=== PATIENT | male | born 1965 | race Hispanic/Latino ===

== ENCOUNTER 2020-09-30 09:23 | Outpatient (CLI) | payer MEDICARE, MEDICAID | END 2020-09-30 09:24 | disposition home or self-care (01) | LOC: CSHWCC 09:23 | PROVIDERS: ATTEND Nurse Practitioner Family | DX: T81.89XD Other complications of procedures, not elsewhere classified, subsequent encounter (principal); E11.40 Type 2 diabetes mellitus with diabetic neuropathy, unspecified; I21.3 ST elevation (STEMI) myocardial infarction of unspecified site; I10 Essential (primary) hypertension | CPT/HCPCS: 97139; G0463; 99203 ==

== ENCOUNTER 2020-10-14 09:53 | Outpatient (CLI) | payer MEDICARE, MEDICAID | END 2020-10-14 09:54 | disposition home or self-care (01) | LOC: CSHWCC 09:53 | PROVIDERS: ATTEND Nurse Practitioner Family | DX: T81.89XD Other complications of procedures, not elsewhere classified, subsequent encounter (principal); E11.40 Type 2 diabetes mellitus with diabetic neuropathy, unspecified; I10 Essential (primary) hypertension; I21.3 ST elevation (STEMI) myocardial infarction of unspecified site | CPT/HCPCS: 97139; G0463; 99212 ==

== ENCOUNTER 2022-07-13 12:12 | Inpatient (IN) | payer OTHER, MEDICAID ==
[2022-07-13 12:59] LABS: Hemoglobin 9.2 g/dL (13.5-17.5); Mean Corpuscular HGB CONC 32.1 g/dL (32.0-36.0); Mean Corpuscular Hemoglobin 24.8 pg (27.0-33.0); Mean Corpuscular Volume 77.4 fl (81.2-95.1); Mean Platelet Volume 9.6 fl (7.4-10.4); Platelet Count 392 10x3/uL (150-450); RBC Distribution Width 16.2 % (11.5-14.5); Red Blood Cell (RBC) Count 3.71 10x6/uL (4.32-5.72); White Blood Cell (WBC) Count 22.2 10x3/uL (3.5-10.5)
[2022-07-13 13:00] LABS: MDiff Complete? YES
[2022-07-13 13:11] LABS: INR-International Normal Ratio 1.1; PTT 30.3 sec (22.0-33.0); Prothrombin Time 11.8 sec (9.5-12.1)
[2022-07-13 13:14] LABS: ALT (SGPT) 6 U/L (8-55); AST (SGOT) 14 U/L (5-34); Albumin 2.7 g/dL (3.5-5.0); Alkaline Phosphatase 67 U/L (40-110); Anion Gap 20 mmol/L (10-20); BUN (Urea Nitrogen) 65 mg/dL (8.4-25.7); Bilirubin, Total 0.6 mg/dL (0.2-1.2); Calc. Creatinine Clearance 0 mL/min (70-130); Calcium 8.4 mg/dL (7.8-10.44); Carbon Dioxide 18 mmol/L (22-29); Chloride 104 mmol/L (98-107); Estimated GFR 17; Globulin 4.2 g/dL (2.4-3.5); Glucose 117 mg/dL (70-105); Lipase 9 U/L (8-78); Potassium 5.2 mmol/L (3.5-5.1); Protein, Total 6.9 g/dL (6.0-8.3); Sodium 137 mmol/L (136-145)
[2022-07-13 13:33] LABS: Band 7 % (5-11); Neutrophil 71 % (42-75)
[2022-07-13 13:34] LABS: Eosinophils 1 % (0-10); Reactive Lymphocytes 4 % (0-10)
[2022-07-13 13:35] LABS: Lymphocytes 9 % (21-51); Monocytes 5 % (0-10)
[2022-07-13 13:37] LABS: Anisocytosis SLIGHT = 6-15 cells (100X) (0-5/hpf); Microcytosis SLIGHT = 6-15 cells (100X) (0-5/hpf)
[2022-07-13 13:38] LABS: Platelet Clumps MODERATE; Platelet Morphology Comment Appears Adequate
[2022-07-13 13:45] LABS: SARS-CoV-2 NAA Rapid Test Not Detected (NotDetected)
[2022-07-13 14:42] LABS: Bilirubin Neg (Negative); Blood, Urine 25 (Negative); Clarity Clear (Clear); Glucose, Urine (Dipstick) 100 mg/dL (Negative); Ketone, Urine Negative (Negative); Leukocyte Negative (Negative); Nitrite Negative (Negative); Protein, Urine (Dipstick) 500 mg/dl (Neg-Trace); Urobilinogen Normal mg/dL (Less than 2)
[2022-07-13 14:51] LABS: Mucous/LPF 2+ LPF (<2+); Squamous Epithelial 0-3 HPF (0-3)
[2022-07-13 14:52] LABS: Bacteria/HPF 2+ HPF (None Seen)
[2022-07-13] MEDS ORDERED: metroNIDAZOLE 500 MG/100 ML BAG ONE (16:29)
[2022-07-13] MEDS ORDERED: HumaLOG 300 UNITS/3 ML VIAL SC PRN ×2 (19:50)
[2022-07-13] MEDS ORDERED: Dextrose 5% in Water 1,000 ML IV PRN (19:50)
[2022-07-13] MEDS ORDERED: hydrOXYzine 10 MG TAB PO PRN (19:50)
[2022-07-13] MEDS ORDERED: Dextrose 50% Abboject 50 ML SYRINGE SLOW IVP PRN (19:50)
[2022-07-13] MEDS ORDERED: Acetaminophen 650 MG Suppository PR PRN (19:50)
[2022-07-13] MEDS ORDERED: Senokot S 8.6-50 MG TAB PO PRN (19:50)
[2022-07-13] MEDS ORDERED: Guaifenesin DM 100-10/5 ML UDCUP PO PRN (19:50)
[2022-07-13] MEDS: Sodium Chloride 0.45% 1,000 ML IV SCH (20:57)
[2022-07-13] MEDS: Midodrine HCl 5 MG TAB PO SCH (21:09)
[2022-07-13] MEDS: Gabapentin 300 MG CAP PO SCH (21:09)
[2022-07-13] MEDS: Senokot S 8.6-50 MG TAB PO SCH (21:09)
[2022-07-13] MEDS: Doxycycline 100 MG CAP PO SCH (21:09)
[2022-07-13] MEDS: Heparin 5,000 UNITS/ML VIAL SC SCH (21:10)
[2022-07-13] MEDS: Lantus 1000 UNITS/10 ML VIAL SC SCH (21:10)
[2022-07-14 06:07] LABS: #Basophils 0.1 10x3/uL (0.0-0.2); #Monocytes 0.9 10x3/uL (0.0-1.1); #Neutrophils 13.5 10x3/uL (1.5-8.4); %Basophils 0.4 % (0.0-2.0); %Eosinophils 0.1 % (0.0-6.0); %Lymphocytes 10.6 % (18.0-47.0); %Monocytes 5.5 % (0.0-10.0); Hemoglobin 8.3 g/dL (13.5-17.5); Mean Corpuscular HGB CONC 31.7 g/dL (32.0-36.0); Mean Corpuscular Hemoglobin 24.3 pg (27.0-33.0); Mean Corpuscular Volume 76.8 fl (81.2-95.1); Mean Platelet Volume 9.5 fl (7.4-10.4); Platelet Count 298 10x3/uL (150-450); RBC Distribution Width 15.9 % (11.5-14.5); Red Blood Cell (RBC) Count 3.41 10x6/uL (4.32-5.72); White Blood Cell (WBC) Count 16.3 10x3/uL (3.5-10.5)
[2022-07-14 06:18] LABS: Anion Gap 15 mmol/L (10-20); BUN (Urea Nitrogen) 49 mg/dL (8.4-25.7); Calc. Creatinine Clearance 27 mL/min (70-130); Calcium 8.6 mg/dL (7.8-10.44); Carbon Dioxide 17 mmol/L (22-29); Chloride 109 mmol/L (98-107); Estimated GFR 25; Glucose 120 mg/dL (70-105); Potassium 4.8 mmol/L (3.5-5.1); Sodium 136 mmol/L (136-145)
[2022-07-14] MEDS: Gabapentin 300 MG CAP PO SCH ×3 (09:03→21:54)
[2022-07-14] MEDS: Doxycycline 100 MG CAP PO SCH ×2 (09:04→21:54)
[2022-07-14] MEDS: Aspirin Chewable 81 MG TAB PO SCH (09:04)
[2022-07-14] MEDS: Icosapent Ethyl 1 GM CAPSULE PO SCH ×2 (09:04→16:11)
[2022-07-14] MEDS: Atorvastatin Calcium 40 MG TAB PO SCH (09:04)
[2022-07-14] MEDS: Carvedilol 6.25 MG TAB PO SCH ×2 (09:05→16:12)
[2022-07-14] MEDS: Heparin 5,000 UNITS/ML VIAL SC SCH ×3 (09:05→21:54)
[2022-07-14] MEDS: Polyethylene Glycol 3350 17 GM Packet PO SCH (09:06)
[2022-07-14] MEDS: Midodrine HCl 5 MG TAB PO SCH ×4 (09:06→21:59)
[2022-07-14] MEDS: Senokot S 8.6-50 MG TAB PO SCH ×2 (09:06→21:55)
[2022-07-14] MEDS: Ondansetron ODT 4 MG TAB PO PRN (09:12)
[2022-07-14] MEDS ORDERED: metroNIDAZOLE 500 MG/100 ML BAG ONE (11:52)
[2022-07-14] MEDS: Sodium Chloride 0.45% 1,000 ML IV SCH (12:09)
[2022-07-14] MEDS: metroNIDAZOLE 500 MG in Premix Bag 1 BAG IVPB SCH ×3 (12:09→21:53)
[2022-07-14] MEDS: traMADol HCl 50 MG TAB PO PRN (16:20)
[2022-07-14] MEDS: Lantus 1000 UNITS/10 ML VIAL SC SCH (21:54)
[2022-07-15 04:47] LABS: Anion Gap 13 mmol/L (10-20); BUN (Urea Nitrogen) 46 mg/dL (8.4-25.7); Calc. Creatinine Clearance 31 mL/min (70-130); Calcium 7.9 mg/dL (7.8-10.44); Carbon Dioxide 16 mmol/L (22-29); Chloride 104 mmol/L (98-107); Estimated GFR 29; Glucose 173 mg/dL (70-105); Potassium 4.4 mmol/L (3.5-5.1); Sodium 129 mmol/L (136-145)
[2022-07-15 05:17] LABS: #Eosinphils 0.1 10x3/uL (0.0-0.5); #Monocytes 0.6 10x3/uL (0.0-1.1); #Neutrophils 9.3 10x3/uL (1.5-8.4); %Basophils 0.3 % (0.0-2.0); %Eosinophils 0.6 % (0.0-6.0); %Lymphocytes 14.5 % (18.0-47.0); %Monocytes 5.4 % (0.0-10.0); %Neutrophils 78.9 % (40.0-75.0); Hemoglobin 7.1 g/dL (13.5-17.5); Mean Corpuscular HGB CONC 31.6 g/dL (32.0-36.0); Mean Corpuscular Hemoglobin 24.7 pg (27.0-33.0); Mean Corpuscular Volume 78.1 fl (81.2-95.1); Mean Platelet Volume 9.9 fl (7.4-10.4); Platelet Count 268 10x3/uL (150-450); RBC Distribution Width 15.6 % (11.5-14.5); Red Blood Cell (RBC) Count 2.88 10x6/uL (4.32-5.72); White Blood Cell (WBC) Count 11.8 10x3/uL (3.5-10.5)
[2022-07-15] MEDS ORDERED: metroNIDAZOLE 500 MG/100 ML BAG ONE (07:00)
[2022-07-15] MEDS: metroNIDAZOLE 500 MG in Premix Bag 1 BAG IVPB SCH ×3 (07:02→19:47)
[2022-07-15] MEDS: Sodium Chloride 0.45% 1,000 ML IV SCH ×2 (07:11→18:14)
[2022-07-15] MEDS: Gabapentin 300 MG CAP PO SCH ×3 (07:54→21:48)
[2022-07-15] MEDS: Carvedilol 6.25 MG TAB PO SCH ×3 (07:55→19:56)
[2022-07-15] MEDS: Aspirin Chewable 81 MG TAB PO SCH (07:56)
[2022-07-15] MEDS: Doxycycline 100 MG CAP PO SCH ×2 (07:59→21:48)
[2022-07-15] MEDS: Midodrine HCl 5 MG TAB PO SCH ×3 (08:00→21:50)
[2022-07-15] MEDS: Senokot S 8.6-50 MG TAB PO SCH ×2 (08:01→22:06)
[2022-07-15] MEDS: Polyethylene Glycol 3350 17 GM Packet PO SCH (08:01)
[2022-07-15] MEDS: Icosapent Ethyl 1 GM CAPSULE PO SCH ×2 (08:01→19:49)
[2022-07-15] MEDS: Heparin 5,000 UNITS/ML VIAL SC SCH ×3 (08:01→21:50)
[2022-07-15] MEDS: Atorvastatin Calcium 40 MG TAB PO SCH (08:02)
[2022-07-15] MEDS ORDERED: Lidocaine 1% PF 5 ML VIAL ONE (09:05)
[2022-07-15] MEDS ORDERED: Fentanyl 100 MCG/2 ML VIAL ONE (09:05)
[2022-07-15] MEDS ORDERED: PROPOFOL 20 ML ONE (09:05)
[2022-07-15] MEDS ORDERED: Succinylcholine 200 MG/10 ml SYRINGE FS ONE (09:17)
[2022-07-15] MEDS ORDERED: Rocuronium Bromide 10 MG/ML (10ML VIAL) ONE (09:17)
[2022-07-15] MEDS ORDERED: Ondansetron PF 4 MG/2 ML Vial ONE (10:33)
[2022-07-15] MEDS: traMADol HCl 50 MG TAB PO PRN (14:41)
[2022-07-15] MEDS: Morphine 4 MG/ML VIAL SLOW IVP PRN ×2 (15:51→21:58)
[2022-07-15] MEDS: Lantus 1000 UNITS/10 ML VIAL SC SCH (21:49)
[2022-07-16] MEDS: metroNIDAZOLE 500 MG in Premix Bag 1 BAG IVPB SCH ×4 (00:23→18:00)
[2022-07-16 03:46] LABS: Anion Gap 11 mmol/L (10-20); BUN (Urea Nitrogen) 36 mg/dL (8.4-25.7); Calc. Creatinine Clearance 36 mL/min (70-130); Calcium 7.7 mg/dL (7.8-10.44); Carbon Dioxide 15 mmol/L (22-29); Chloride 108 mmol/L (98-107); Estimated GFR 35; Glucose 100 mg/dL (70-105); Potassium 4.4 mmol/L (3.5-5.1); Sodium 130 mmol/L (136-145)
[2022-07-16 03:47] LABS: #Basophils 0.1 10x3/uL (0.0-0.2); #Eosinphils 0.1 10x3/uL (0.0-0.5); #Monocytes 0.6 10x3/uL (0.0-1.1); #Neutrophils 8.3 10x3/uL (1.5-8.4); %Basophils 0.7 % (0.0-2.0); %Eosinophils 0.7 % (0.0-6.0); %Lymphocytes 17.8 % (18.0-47.0); %Monocytes 5.8 % (0.0-10.0); %Neutrophils 74.7 % (40.0-75.0); Mean Corpuscular HGB CONC 32.4 g/dL (32.0-36.0); Mean Corpuscular Hemoglobin 25.4 pg (27.0-33.0); Mean Corpuscular Volume 78.4 fl (81.2-95.1); Mean Platelet Volume 10.1 fl (7.4-10.4); Platelet Count 249 10x3/uL (150-450); RBC Distribution Width 15.4 % (11.5-14.5); Red Blood Cell (RBC) Count 3.15 10x6/uL (4.32-5.72); White Blood Cell (WBC) Count 11.1 10x3/uL (3.5-10.5)
[2022-07-16] MEDS: Sodium Chloride 0.45% 1,000 ML IV SCH ×2 (04:56→18:39)
[2022-07-16] MEDS: traMADol HCl 50 MG TAB PO PRN ×3 (06:46→20:05)
[2022-07-16] MEDS: Gabapentin 300 MG CAP PO SCH ×3 (08:48→20:58)
[2022-07-16] MEDS: Doxycycline 100 MG CAP PO SCH ×2 (08:49→20:58)
[2022-07-16] MEDS: Aspirin Chewable 81 MG TAB PO SCH (08:49)
[2022-07-16] MEDS: Carvedilol 6.25 MG TAB PO SCH ×2 (08:49→18:00)
[2022-07-16] MEDS: Midodrine HCl 5 MG TAB PO SCH ×3 (08:49→20:59)
[2022-07-16] MEDS: Icosapent Ethyl 1 GM CAPSULE PO SCH ×2 (08:49→18:00)
[2022-07-16] MEDS: Atorvastatin Calcium 40 MG TAB PO SCH (08:49)
[2022-07-16] MEDS: Morphine 4 MG/ML VIAL SLOW IVP PRN (08:50)
[2022-07-16] MEDS: Polyethylene Glycol 3350 17 GM Packet PO SCH (08:51)
[2022-07-16] MEDS: Senokot S 8.6-50 MG TAB PO SCH ×2 (08:51→20:59)
[2022-07-16] MEDS: Heparin 5,000 UNITS/ML VIAL SC SCH ×3 (09:01→21:06)
[2022-07-16] MEDS: Lantus 1000 UNITS/10 ML VIAL SC SCH (21:05)
[2022-07-16] MEDS: Acetaminophen 500 MG TAB PO PRN (21:09)
[2022-07-17] MEDS: traMADol HCl 50 MG TAB PO PRN ×2 (01:05→13:14)
[2022-07-17] MEDS: metroNIDAZOLE 500 MG in Premix Bag 1 BAG IVPB SCH ×4 (01:07→17:23)
[2022-07-17] MEDS: Ondansetron PF 4 MG/2 ML Vial IVP PRN ×2 (01:11→21:19)
[2022-07-17] MEDS ORDERED: Morphine 2 MG/ML VIAL SLOW IVP PRN (03:33)
[2022-07-17 04:28] LABS: Anion Gap 11 mmol/L (10-20); BUN (Urea Nitrogen) 33 mg/dL (8.4-25.7); Calc. Creatinine Clearance 38 mL/min (70-130); Calcium 7.8 mg/dL (7.8-10.44); Carbon Dioxide 16 mmol/L (22-29); Chloride 107 mmol/L (98-107); Estimated GFR 39; Glucose 90 mg/dL (70-105); Potassium 4.4 mmol/L (3.5-5.1); Sodium 130 mmol/L (136-145)
[2022-07-17 04:39] LABS: #Basophils 0.1 10x3/uL (0.0-0.2); #Eosinphils 0.1 10x3/uL (0.0-0.5); #Monocytes 0.8 10x3/uL (0.0-1.1); #Neutrophils 7.3 10x3/uL (1.5-8.4); %Basophils 0.6 % (0.0-2.0); %Lymphocytes 17.6 % (18.0-47.0); %Monocytes 7.5 % (0.0-10.0); %Neutrophils 72.9 % (40.0-75.0); Hemoglobin 7.9 g/dL (13.5-17.5); Mean Corpuscular HGB CONC 32.6 g/dL (32.0-36.0); Mean Corpuscular Hemoglobin 25.4 pg (27.0-33.0); Mean Corpuscular Volume 77.8 fl (81.2-95.1); Mean Platelet Volume 9.7 fl (7.4-10.4); Platelet Count 261 10x3/uL (150-450); RBC Distribution Width 15.4 % (11.5-14.5); Red Blood Cell (RBC) Count 3.11 10x6/uL (4.32-5.72)
[2022-07-17] MEDS: Polyethylene Glycol 3350 17 GM Packet PO SCH (08:11)
[2022-07-17] MEDS: Doxycycline 100 MG CAP PO SCH ×2 (08:55→21:34)
[2022-07-17] MEDS: Senokot S 8.6-50 MG TAB PO SCH ×2 (08:55→21:36)
[2022-07-17] MEDS: Icosapent Ethyl 1 GM CAPSULE PO SCH ×2 (08:55→17:22)
[2022-07-17] MEDS: Atorvastatin Calcium 40 MG TAB PO SCH (08:56)
[2022-07-17] MEDS: Carvedilol 6.25 MG TAB PO SCH ×2 (08:56→17:23)
[2022-07-17] MEDS: Acetaminophen 500 MG TAB PO PRN (08:57)
[2022-07-17] MEDS: Ondansetron ODT 4 MG TAB PO PRN ×2 (08:59→15:06)
[2022-07-17] MEDS: Aspirin Chewable 81 MG TAB PO SCH (09:00)
[2022-07-17] MEDS: Gabapentin 300 MG CAP PO SCH ×3 (09:00→21:34)
[2022-07-17] MEDS: Heparin 5,000 UNITS/ML VIAL SC SCH ×3 (09:01→21:33)
[2022-07-17] MEDS: Midodrine HCl 5 MG TAB PO SCH ×3 (09:03→21:35)
[2022-07-17] MEDS ORDERED: Scopolamine 1.5 mg/72 hour Patch TOP SCH (16:00)
[2022-07-17] MEDS: Lantus 1000 UNITS/10 ML VIAL SC SCH (21:31)
[2022-07-17] MEDS: HYDROcodone/Acetaminophen 5/325 mg Tablet PO PRN (21:40)
[2022-07-18] MEDS: metroNIDAZOLE 500 MG in Premix Bag 1 BAG IVPB SCH ×2 (01:05→05:46)
[2022-07-18 03:50] LABS: Anion Gap 12 mmol/L (10-20); BUN (Urea Nitrogen) 29 mg/dL (8.4-25.7); Calc. Creatinine Clearance 41 mL/min (70-130); Calcium 8.3 mg/dL (7.8-10.44); Carbon Dioxide 17 mmol/L (22-29); Chloride 107 mmol/L (98-107); Estimated GFR 41; Glucose 115 mg/dL (70-105); Potassium 4.3 mmol/L (3.5-5.1); Sodium 132 mmol/L (136-145)
[2022-07-18 03:56] LABS: #Basophils 0.1 10x3/uL (0.0-0.2); #Eosinphils 0.2 10x3/uL (0.0-0.5); #Monocytes 0.9 10x3/uL (0.0-1.1); #Neutrophils 9.1 10x3/uL (1.5-8.4); %Basophils 0.7 % (0.0-2.0); %Eosinophils 1.5 % (0.0-6.0); %Lymphocytes 14.3 % (18.0-47.0); %Monocytes 7.1 % (0.0-10.0); %Neutrophils 75.8 % (40.0-75.0); Hemoglobin 8.6 g/dL (13.5-17.5); Mean Corpuscular HGB CONC 32.6 g/dL (32.0-36.0); Mean Corpuscular Volume 76.7 fl (81.2-95.1); Mean Platelet Volume 9.3 fl (7.4-10.4); Platelet Count 310 10x3/uL (150-450); RBC Distribution Width 15.3 % (11.5-14.5); Red Blood Cell (RBC) Count 3.44 10x6/uL (4.32-5.72); White Blood Cell (WBC) Count 12.1 10x3/uL (3.5-10.5)
[2022-07-18] MEDS: Ondansetron PF 4 MG/2 ML Vial IVP PRN (05:50)
[2022-07-18] MEDS: Aspirin Chewable 81 MG TAB PO SCH ×2 (10:19→11:02)
[2022-07-18] MEDS: Atorvastatin Calcium 40 MG TAB PO SCH ×2 (10:19→11:04)
[2022-07-18] MEDS: Doxycycline 100 MG CAP PO SCH (10:19)
[2022-07-18] MEDS: Gabapentin 300 MG CAP PO SCH ×3 (10:20→21:53)
[2022-07-18] MEDS: Heparin 5,000 UNITS/ML VIAL SC SCH ×3 (10:21→21:53)
[2022-07-18] MEDS: Polyethylene Glycol 3350 17 GM Packet PO SCH (10:22)
[2022-07-18] MEDS: Morphine 4 MG/ML VIAL SLOW IVP PRN ×2 (10:34→21:52)
[2022-07-18] MEDS: Senokot S 8.6-50 MG TAB PO SCH ×2 (10:53→22:45)
[2022-07-18] MEDS: Icosapent Ethyl 1 GM CAPSULE PO SCH ×2 (10:55→18:31)
[2022-07-18] MEDS: Midodrine HCl 5 MG TAB PO SCH ×3 (10:55→22:44)
[2022-07-18] MEDS: Carvedilol 6.25 MG TAB PO SCH ×2 (11:03→18:23)
[2022-07-18] MEDS ORDERED: Promethazine HCl 12.5 MG in Sodium Chloride 0.9% 50 ML IVPB PRN (11:40)
[2022-07-18] MEDS: HYDROcodone/Acetaminophen 5/325 mg Tablet PO PRN (16:11)
[2022-07-18] MEDS: Ondansetron ODT 4 MG TAB PO PRN (16:11)
[2022-07-18] MEDS: Lantus 1000 UNITS/10 ML VIAL SC SCH (21:54)
[2022-07-19 04:03] LABS: #Basophils 0.1 10x3/uL (0.0-0.2); #Eosinphils 0.2 10x3/uL (0.0-0.5); #Monocytes 0.7 10x3/uL (0.0-1.1); #Neutrophils 8.9 10x3/uL (1.5-8.4); %Basophils 0.7 % (0.0-2.0); %Eosinophils 1.7 % (0.0-6.0); %Lymphocytes 18.1 % (18.0-47.0); %Neutrophils 72.8 % (40.0-75.0); Hemoglobin 8.8 g/dL (13.5-17.5); Mean Corpuscular HGB CONC 32.5 g/dL (32.0-36.0); Mean Platelet Volume 9.2 fl (7.4-10.4); Platelet Count 323 10x3/uL (150-450); RBC Distribution Width 15.5 % (11.5-14.5); Red Blood Cell (RBC) Count 3.52 10x6/uL (4.32-5.72); White Blood Cell (WBC) Count 12.2 10x3/uL (3.5-10.5)
[2022-07-19 04:10] LABS: Anion Gap 12 mmol/L (10-20); BUN (Urea Nitrogen) 31 mg/dL (8.4-25.7); Calc. Creatinine Clearance 37 mL/min (70-130); Calcium 8.4 mg/dL (7.8-10.44); Carbon Dioxide 18 mmol/L (22-29); Chloride 108 mmol/L (98-107); Estimated GFR 38; Glucose 91 mg/dL (70-105); Potassium 4.5 mmol/L (3.5-5.1); Sodium 133 mmol/L (136-145)
[2022-07-19] MEDS: Aspirin Chewable 81 MG TAB PO SCH (09:05)
[2022-07-19] MEDS: Gabapentin 300 MG CAP PO SCH ×3 (09:05→21:52)
[2022-07-19] MEDS: Carvedilol 6.25 MG TAB PO SCH ×2 (09:05→16:11)
[2022-07-19] MEDS: Senokot S 8.6-50 MG TAB PO SCH ×2 (09:06→22:01)
[2022-07-19] MEDS: Atorvastatin Calcium 40 MG TAB PO SCH (09:06)
[2022-07-19] MEDS: Heparin 5,000 UNITS/ML VIAL SC SCH ×3 (09:06→21:49)
[2022-07-19] MEDS: Midodrine HCl 5 MG TAB PO SCH ×3 (09:06→21:48)
[2022-07-19] MEDS: Icosapent Ethyl 1 GM CAPSULE PO SCH ×2 (09:06→16:11)
[2022-07-19] MEDS: Polyethylene Glycol 3350 17 GM Packet PO SCH (09:06)
[2022-07-19] MEDS: Morphine 4 MG/ML VIAL SLOW IVP PRN ×2 (09:25→21:48)
[2022-07-19 10:30] VITALS: BMI 22.5
[2022-07-19] MEDS ORDERED: Sodium Chloride 0.9% 1,000 ML IV SCH (10:30)
[2022-07-19] MEDS: Sodium Chloride 0.9% 1,000 ML IV SCH (12:42)
[2022-07-19] MEDS: Lantus 1000 UNITS/10 ML VIAL SC SCH (22:01)
[2022-07-20] MEDS: Sodium Chloride 0.9% 1,000 ML IV SCH (02:49)
[2022-07-20 04:35] LABS: #Basophils 0.1 10x3/uL (0.0-0.2); #Eosinphils 0.3 10x3/uL (0.0-0.5); #Monocytes 0.8 10x3/uL (0.0-1.1); #Neutrophils 8.5 10x3/uL (1.5-8.4); %Basophils 0.7 % (0.0-2.0); %Eosinophils 2.4 % (0.0-6.0); %Lymphocytes 20.2 % (18.0-47.0); %Monocytes 6.4 % (0.0-10.0); %Neutrophils 69.5 % (40.0-75.0); Hemoglobin 7.6 g/dL (13.5-17.5); Mean Corpuscular HGB CONC 32.2 g/dL (32.0-36.0); Mean Corpuscular Hemoglobin 24.9 pg (27.0-33.0); Mean Corpuscular Volume 77.4 fl (81.2-95.1); Mean Platelet Volume 9.4 fl (7.4-10.4); Platelet Count 334 10x3/uL (150-450); RBC Distribution Width 15.8 % (11.5-14.5); Red Blood Cell (RBC) Count 3.05 10x6/uL (4.32-5.72); White Blood Cell (WBC) Count 12.3 10x3/uL (3.5-10.5)
[2022-07-20 04:48] LABS: Anion Gap 11 mmol/L (10-20); BUN (Urea Nitrogen) 35 mg/dL (8.4-25.7); Calc. Creatinine Clearance 40 mL/min (70-130); Calcium 7.8 mg/dL (7.8-10.44); Carbon Dioxide 16 mmol/L (22-29); Chloride 111 mmol/L (98-107); Estimated GFR 40; Glucose 140 mg/dL (70-105); Potassium 4.4 mmol/L (3.5-5.1); Sodium 134 mmol/L (136-145)
[2022-07-20] MEDS: Midodrine HCl 5 MG TAB PO SCH (08:56)
[2022-07-20] MEDS: Atorvastatin Calcium 40 MG TAB PO SCH (08:56)
[2022-07-20] MEDS: Icosapent Ethyl 1 GM CAPSULE PO SCH (08:57)
[2022-07-20] MEDS: Heparin 5,000 UNITS/ML VIAL SC SCH (08:57)
[2022-07-20] MEDS: Carvedilol 6.25 MG TAB PO SCH (08:57)
[2022-07-20] MEDS: Gabapentin 300 MG CAP PO SCH (08:57)
[2022-07-20] MEDS: Aspirin Chewable 81 MG TAB PO SCH (08:57)
[2022-07-20] MEDS: Polyethylene Glycol 3350 17 GM Packet PO SCH (08:57)
[2022-07-20] MEDS: Senokot S 8.6-50 MG TAB PO SCH (08:58)
[2022-07-20 12:20] VITALS: TEMP 97.6
[2022-07-20 13:11] VITALS: BP 113/74
[2022-07-20] MEDS ORDERED: Transdermal Patch Removal TOP SCH (16:00)
== END 2022-07-20 12:21 | DRG 239 ==
LOC: CSHERS 12:12 → CSHTELE 17:51
PROVIDERS: ADMIT Emergency Medicine; ATTEND Internal Medicine
PROC: 0T9B70Z Drainage of Bladder with Drainage Device, Via Natural or Artificial Opening (ICD-10-PCS; 2022-07-13)
PROC: 3E03329 Introduction of Other Anti-infective into Peripheral Vein, Percutaneous Approach (ICD-10-PCS; 2022-07-13)
PROC: 0Y6H0Z1 Detachment at Right Lower Leg, High, Open Approach (ICD-10-PCS; principal; 2022-07-15)
PROC: 30233N1 Transfusion of Nonautologous Red Blood Cells into Peripheral Vein, Percutaneous Approach (ICD-10-PCS; 2022-07-15)
DX: E11.52 Type 2 diabetes mellitus with diabetic peripheral angiopathy with gangrene (principal); A41.9 Sepsis, unspecified organism; I50.22 Chronic systolic (congestive) heart failure; N18.4 Chronic kidney disease, stage 4 (severe); N17.9 Acute kidney failure, unspecified; I13.0 Hypertensive heart and chronic kidney disease with heart failure and stage 1 through stage 4 chronic kidney disease, or unspecified chronic kidney disease; N13.6 Pyonephrosis; E11.22 Type 2 diabetes mellitus with diabetic chronic kidney disease; I25.10 Atherosclerotic heart disease of native coronary artery without angina pectoris; E11.42 Type 2 diabetes mellitus with diabetic polyneuropathy; J44.9 Chronic obstructive pulmonary disease, unspecified; K59.00 Constipation, unspecified; K52.89 Other specified noninfective gastroenteritis and colitis; D63.1 Anemia in chronic kidney disease; Z20.822 Contact with and (suspected) exposure to COVID-19; E78.5 Hyperlipidemia, unspecified; Z90.49 Acquired absence of other specified parts of digestive tract; Z89.422 Acquired absence of other left toe(s); Z89.421 Acquired absence of other right toe(s); Z95.810 Presence of automatic (implantable) cardiac defibrillator; Z98.890 Other specified postprocedural states; Z87.891 Personal history of nicotine dependence; Z79.82 Long term (current) use of aspirin; Z79.899 Other long term (current) drug therapy; Z79.51 Long term (current) use of inhaled steroids; Z79.4 Long term (current) use of insulin; Z95.1 Presence of aortocoronary bypass graft; R33.8 Other retention of urine
CPT/HCPCS: 36415; 36416; 36430; 51702; 71045; 74176; 80048; 80053; 81003; 81015; 83605; 83690; 85025; 85610; 85730; 86850; 86900; 86901; 87040; 87086; 88307; 93005; 93010; 94760; 94762; 96361; 96365; 96368; 97139; J1644; J1815; J1956; J2270; J2405; J2704; J3010; J7050; P9016; Q0162